=== PATIENT | female | born 1985 | race Two or more races ===

== ENCOUNTER 2017-03-27 21:56 | Emergency (ER) | payer MEDICAID ==
[~2017-03-27] VITALS: Ht 162.6 cm; Wt 56.7 kg
[2017-03-27] MEDS ORDERED: NKM (22:06)
[2017-03-27 22:13] VITALS: BP 110/64
[2017-03-27] MEDS ORDERED: Ketorolac 60mg Inj IM ONE (22:30)
[2017-03-28 01:00] VITALS: BP 115/66
[2017-03-28] MEDS ORDERED: IMITREX50 MG ORAL (01:32)
[2017-03-28 01:39] VITALS: BP 115/66
--- NOTE | 2017-03-28 05:31 | Emergency Room Report ---
History of Present Illness General Chief Complaint: Pain Source: Patient Present Illness HPI Patient is a 31-year-old female who presented after increased pain her head. Patient had gradual onset of symptoms. Patient had prior history of migraine headaches but has not had any imaging for the past 10 years. Patient worsening symptoms over the past 2 days. Is associated with some left arm numbness and left leg numbness. patient denied any fever Allergies: Coded Allergies: No Known Allergies (Unverified , 03/27/17) Patient History Past Medical History: see triage record Last Menstrual Period: 03/05/2017 Now: No Reviewed Nursing Documentation: PMH: Agreed, PSxH: Agreed Nursing Documentation-PMH Past Medical History: No History, Except For Review of Systems All Other Systems: negative except mentioned in HPI Physical Exam Vital Signs Date Time Temp Pulse Resp B/P Pulse Ox O2 Delivery O2 Flow Rate FiO2 03/27/17 22:01 98.2 62 16 110/64 97 Room Air Sp02 EP Interpretation: reviewed, normal General Appearance: normal inspection, well appearing, no apparent distress, alert, GCS 15 Head: atraumatic ENT: normal ENT inspection, hearing grossly normal, normal voice Neck: normal inspection, full range of motion, supple, no bony tend Respiratory: normal inspection, lungs clear, normal breath sounds, no respiratory distress, no retraction, no wheezing Cardiovascular #1: regular rate, rhythm, no edema Gastrointestinal: normal inspection, normal bowel sounds, non tender, soft, no guarding, no hernia Genitourinary: no CVA tenderness Musculoskeletal: normal inspection, back normal, normal range of motion Neurologic: normal inspection, alert, responsive, speech normal Psychiatric: normal inspection, judgement/insight normal, mood/affect normal Skin: normal inspection, normal color, no rash Medical Decision Making Diagnostic Impression: Primary Impression: Headache ER Course Patient presented for headache. Differential diagnoses included but was not limited to skull fracture, subarachnoid hemorrhage, meningitis, aneurysm, mass lesion, intracranial hemorrhage. Because of complexity of patient's case laboratory testing and imaging studies were ordered. A CT the head read by radiologist showed no acute evidence of hemorrhage or CVA. Patient given Toradol with improvement in her headache. The patient is advised to follow up with primary care doctor in 1-2 days. Patient is advised to return if any worsening condition or if any changes in status that are concerning. Last Vital Signs Date Time Temp Pulse Resp B/P Pulse Ox O2 Delivery O2 Flow Rate FiO2 03/28/17 01:39 98.0 76 17 115/66 99 Room Air Status: improved Disposition: HOME, SELF-CARE Condition: Stable Scripts Sumatriptan Succinate* (IMITREX*) 50 Mg Tablet 50 MG ORAL DAILY PRN MIGRAINE, #10 TAB Prov: Juan Levi 03/28/17 Patient Instructions: Migraine Headache, [id number] Juan Levi Mar 28, 2017 05:30
--- NOTE | 2017-03-28 09:15 | Diagnostic Imaging Report ---
Indication: PAIN headache Technique: Continuous helical CT scanning of the head was performed without intravenous contrast material. Axial and coronal 5 mm sections were generated. Radiation dose was minimized using automated exposure control Dose: Total Dose Length Product - DLP [address] Dose Index - CTDIvol(s) 70.38 mGy. Comparison: None Findings: The ventricular system is normal in size and configuration. There is no shift of midline structures. No abnormal extra-axial fluid collections are noted. There is no evidence of intracerebral bleeding. No other abnormal high or low density areas are noted within the brain. Intact calvarium. Visualized orbits and sinuses are unremarkable. Impression: Normal CT scan of the head without contrast material. This agrees with the preliminary interpretation provided overnight by [facility]. The CT scanner at [facility] is accredited by the [employer] and the scans are performed using protocols designed to limit radiation exposure to as low as reasonably achievable to attain images of sufficient resolution adequate for diagnostic evaluation.
== END 2017-03-28 01:36 | disposition home or self-care (01) ==
LOC: EMR 22:21
DX: R51 Headache (principal)
CPT/HCPCS: 70450; 81025; 96372; 99284